=== PATIENT | female | born 1990 | race Caucasian/White ===

== ENCOUNTER → 2020-08-14 | Outpatient (REF) | payer OTHER | LOC: M LAB REF 19:55 | PROVIDERS: ATTEND Physician Assistant Medical | DX: Z20.828 Contact with and (suspected) exposure to other viral communicable diseases (principal) ==

== ENCOUNTER 2020-08-28 10:51 | Day surgery (SDC) | payer OTHER ==
[~2020-08-28] VITALS: Ht 167.6 cm; Wt 90.2 kg
[~2020-08-28 10:51] MED LIST: ACETAMINOPHEN *IV* 1,000 MG IV ONE; CLINDAMYCIN 600 MG in IV 1 EA IV ONE; LR 1,000 ML IV ONE; SCOPOLAMINE 1MG TRANSDERMAL PATCH TOP ONE
[2020-08-28] MEDS ORDERED: MIDAZOLAM INJ 2MG/2ML VIAL (J2250 PER 1MG) As Ordered ONE (11:11)
[2020-08-28] MEDS ORDERED: fentaNYL 100 MCG/2 ML INJECTION (J3010) As Ordered ONE (11:12)
[2020-08-28] MEDS ORDERED: dexameTHASONE 4 MG/ML 1ML VIAL (J1100 PER 1MG) As Ordered ONE (11:13)
[2020-08-28] MEDS ORDERED: propofoL 200 MG/20 ML VIAL As Ordered ONE (11:13)
[2020-08-28] MEDS ORDERED: ONDANSETRON 4MG/2ML VIAL As Ordered ONE (11:13)
[2020-08-28] MEDS ORDERED: KETOROLAC 60MG 2ML VIAL As Ordered ONE (11:13)
[2020-08-28] MEDS ORDERED: ROCURONIUM BROMIDE 50 MG/5 ML VIAL As Ordered ONE (11:13)
[2020-08-28] MEDS ORDERED: LIDOCAINE 2% 100MG/5ML SDV (FOR ANES.) As Ordered ONE (11:13)
[2020-08-28 11:47] LABS: HEMATOCRIT 34.8 % (36.0-47.0); HEMOGLOBIN 11.1 g/dl (12.0-15.5); MEAN CORPUSCULAR HGB CONC 31.9 g/dl (32.0-36.5); MEAN CORPUSCULAR VOLUME 87.9 fl (80.0-96.0); PLATELET COUNT, AUTOMATED 159 10^3/uL (150-450); RED BLOOD COUNT 3.96 10^6/uL (4.00-5.40); WHITE BLOOD COUNT 5.1 10^3/uL (4.0-10.0)
[2020-08-28] MEDS ORDERED: LIDOCAINE W/EPINEPHRINE 1% 20ML VIAL As Ordered ONE (12:00)
[2020-08-28] MEDS ORDERED: SILVER NITRATE APPLICATOR As Ordered ONE (12:02)
[2020-08-28] MEDS ORDERED: LevoFLOXacin 500MG/100ML IV BAG (J1956 PER 250MG) As Ordered ONE (12:03)
[2020-08-28] MEDS ORDERED: CLINDAMYCIN 900 MG/50 ML PREMIX BAG As Ordered ONE (12:04)
[2020-08-28] MEDS ORDERED: CLINDAMYCIN 900 MG in IV 1 EA IV ONE (12:15)
[2020-08-28] MEDS ORDERED: LevoFLOXacin IV 500 MG in IV 1 EA IV ONE (12:15)
[2020-08-28] MEDS ORDERED: ACETAMINOPHEN 1000MG 100ML IV BTL (OFIRMEV) (J0131 PER 10MG) As Ordered ONE (12:39)
--- NOTE | 2020-08-28 13:15 | ROOPDOC ---
[facility] Report Of Operation Report of Operation DATE OF PROCEDURE: 08/28/20 PREPROCEDURE DIAGNOSES: perineocele POSTPROCEDURE DIAGNOSES: perineocele PROCEDURE: perineorrhoraphy SURGEON: Ga Motley DO [facility] SUPERVISOR: Donnie Fry MD ANESTHESIA: general ESTIMATED BLOOD LOSS: Approximately 10 mL. COMPLICATIONS: none REMARKS: none PROCEDURE NOTE: The risks, benefits, and alternatives of the procedure were discussed and written consent was obtained. The patient was taken to the OR where she was placed under general anesthesia and positioned in low lithotomy in the yellow fins with her arms out. The vagina and perineum were prepped and draped in a sterile fashion and the bladder was drained. A final time out was preformed. The external genitalia were normal with exception of a defect in the labia minora extending into the vestibule at 5 o clock as well as a perineocele with approx 0.5cm of vaginal mucosa protruding from the vagina. The defect was injected with 4cc of 1% lidocine with epinepherine. A scalpel was used to incise them mucosa and remove the triagular section of mucosa overlying the defect, to include to protruding vaginal mucosa. 2-[address] used to place a crown stitch. The resulting defect was closed with 2-0 vicryl in a running locking fashion on the vaginal mucosa, a running fashion on the perineal subcutaneous tissue and in a running fashion on the perineal skin. The resulting surgical site was hemostatic and normal anatomy was restored. There were no complications. The sponge, lap and needle counts were correct x2. The patient was transferred to the PACU in stable condition. GA MOTLEY DO Aug 28, 2020 13:19
[2020-08-28] MEDS ORDERED: HYDROMORPHONE HCL 0.5 MG/ 0.5 ML SYRINGE (J1170 PER 1) As Ordered ONE (13:27)
[2020-08-28] MEDS ORDERED: oxyCODONE 5MG TAB As Ordered ONE (13:28)
[2020-08-28] MEDS ORDERED: oxyCODONE 5MG TAB PO PRN (13:45)
[2020-08-28] MEDS ORDERED: fentaNYL 100 MCG/2 ML INJECTION (J3010) IV PRN (13:45)
[2020-08-28] MEDS ORDERED: ONDANSETRON 4MG/2ML VIAL IV PRN (13:45)
[2020-08-28] MEDS ORDERED: HYDROMORPHONE HCL 0.5 MG/ 0.5 ML SYRINGE (J1170 PER 1) IV PRN (13:45)
[2020-08-28] MEDS ORDERED: LR 1,000 ML IV SCH (13:45)
[2020-08-28 14:35] VITALS: BP 137/67
[2020-08-28] MEDS ORDERED: IBUPROFEN 800 MG TAB PO SCH (16:00)
== END 2020-08-28 14:35 | disposition home or self-care (01) ==
LOC: M SDC 10:51 → EDUNIT# 14:00 → M SDC 14:35
PROVIDERS: ATTEND Obstetrics & Gynecology
DX: N81.81 Perineocele (principal); F41.9 Anxiety disorder, unspecified; Z88.0 Allergy status to penicillin; Z88.1 Allergy status to other antibiotic agents; Z88.2 Allergy status to sulfonamides; Z88.8 Allergy status to other drugs, medicaments and biological substances; Z87.891 Personal history of nicotine dependence
CPT/HCPCS: 36415; 57240; 81025; 85027; 86850; 86870; 86900; 86901; 88302; J0131; J1100; J1885; J1956; J2250; J2405; J3010

== ENCOUNTER → 2022-06-16 | Outpatient (CLI) | payer OTHER ==
[2022-06-16 17:40] LABS: APPEARANCE, URINE HAZY (CLEAR); BACTERIA, URINE AUTO NEGATIVE (NEGATIVE); BILIRUBIN, URINE AUTO NEGATIVE (NEGATIVE); BLOOD, URINE BLOOD NEGATIVE (NEGATIVE); COLOR, URINE YELLOW (YELLOW); GLUCOSE, URINE (UA) AUTO NEGATIVE (NEGATIVE); KETONE, URINE AUTO NEGATIVE (NEGATIVE); LEUKOCYTE ESTERASE, URINE AUTO TRACE (NEGATIVE); MUCUS, URINE SMALL (NEGATIVE); NITRITE, URINE AUTO NEGATIVE (NEGATIVE); PROTEIN, URINE AUTO NEGATIVE (NEGATIVE); RBC, URINE AUTO 0 /HPF (0-3); SPECIFIC GRAVITY URINE AUTO 1.012 (1.002-1.035); SQUAMOUS EPITHELIAL CELL UR AU 5 /HPF (0-6); UROBILINOGEN, URINE AUTO 0.2 mg/dL (0.0-2.0); WBC, URINE AUTO 5 /HPF (0-3)
[2022-06-16 18:58] LABS: GC DNA AMPLIFICATION NEGATIVE (NEGATIVE)
== END ==
LOC: M RAD 15:55
PROVIDERS: ATTEND Physician Assistant
DX: N39.0 Urinary tract infection, site not specified (principal); R10.2 Pelvic and perineal pain

== ENCOUNTER 2022-06-23 13:20 | Emergency (ER) | payer OTHER ==
[~2022-06-23] VITALS: Ht 167.6 cm; Wt 96.1 kg
[2022-06-23 13:20] VITALS: BP 123/58
[2022-06-23] MEDS ORDERED: TOPA50TA8 PO (13:53)
[2022-06-23] MEDS ORDERED: LITH300C PO (13:53)
[2022-06-23] MEDS ORDERED: ADDE10TA PO (13:53)
[2022-06-23 17:19] LABS: APPEARANCE, URINE CLEAR (CLEAR); BACTERIA, URINE AUTO NEGATIVE (NEGATIVE); BILIRUBIN, URINE AUTO NEGATIVE (NEGATIVE); BLOOD, URINE BLOOD NEGATIVE (NEGATIVE); COLOR, URINE YELLOW (YELLOW); GLUCOSE, URINE (UA) AUTO NEGATIVE (NEGATIVE); KETONE, URINE AUTO NEGATIVE (NEGATIVE); LEUKOCYTE ESTERASE, URINE AUTO NEGATIVE (NEGATIVE); MUCUS, URINE SMALL (NEGATIVE); NITRITE, URINE AUTO NEGATIVE (NEGATIVE); PROTEIN, URINE AUTO NEGATIVE (NEGATIVE); RBC, URINE AUTO 0 /HPF (0-3); SPECIFIC GRAVITY URINE AUTO 1.015 (1.002-1.035); SQUAMOUS EPITHELIAL CELL UR AU 3 /HPF (0-6); UROBILINOGEN, URINE AUTO 0.2 mg/dL (0.0-2.0); WBC, URINE AUTO 1 /HPF (0-3)
== END 2022-06-23 21:01 | disposition home or self-care (01) ==
LOC: M ED 13:20
DX: R10.2 Pelvic and perineal pain (principal); R32 Unspecified urinary incontinence; N89.8 Other specified noninflammatory disorders of vagina; N83.01 Follicular cyst of right ovary; Z88.0 Allergy status to penicillin; Z88.1 Allergy status to other antibiotic agents; Z88.2 Allergy status to sulfonamides; Z88.8 Allergy status to other drugs, medicaments and biological substances; Z79.899 Other long term (current) drug therapy